=== PATIENT | female | born 1995 | race Caucasian/White ===

== ENCOUNTER 2024-06-14 22:50 | Emergency (ER) | payer OTHER ==
[~2024-06-14] VITALS: Ht 177.8 cm; Wt 156.3 kg
[2024-06-15 03:54] VITALS: BP 130/84; TEMP 98.9; O2SAT 98
== END 2024-06-15 03:55 | disposition home or self-care (01) ==
LOC: M ED 22:50
DX: U07.1 COVID-19 (principal)

== ENCOUNTER 2024-12-19 12:04 | Day surgery (SDC) | payer OTHER ==
[~2024-12-19] VITALS: Ht 177.8 cm; Wt 157.5 kg
[~2024-12-19 12:04] MED LIST: ACETAMINOPHEN 500 MG TAB PO ONE; FERR325T19 PO; KETOROLAC 30 MG/ML 1 ML VIAL As Ordered ONE; LEXA1TAB PO; LIDOCAINE 2% 100 MG/5 ML SDV (FOR ANES.) As Ordered ONE; MIDAZOLAM INJ 2 MG/2 ML VIAL As Ordered ONE; ONDANSETRON 4MG 2ML VIAL As Ordered ONE; PRENTAB53 PO; dexAMETHasone 4 MG/ML 1 ML VIAL As Ordered ONE
[2024-12-19 13:17] LABS: PLATELET COUNT, AUTOMATED 325 10^3/uL (150-450)
[2024-12-19] MEDS ORDERED: TACR0.1O EX (13:34)
[2024-12-19 13:38] LABS: CALCIUM LEVEL 9.4 MG/DL (8.5-10.1); CARBON DIOXIDE LEVEL 25 MMOL/L (20-31); CHLORIDE LEVEL 104 MMOL/L (98-107); CREATININE FOR GFR 0.58 MG/DL (0.55-1.30); GLOMERULAR FILTRATION RATE > 90.0 (>60); POTASSIUM SERUM 3.9 MMOL/L (3.5-5.1); SODIUM LEVEL 143 MMOL/L (136-145)
[2024-12-19] MEDS ORDERED: LR 1,000 ML IV SCH (13:40)
[2024-12-19] MEDS: SCOPOLAMINE 1MG TRANSDERMAL PATCH TOP ONE (14:02)
[2024-12-19] MEDS ORDERED: SILVER NITRATE APPLICATOR (1 = QTY 10) As Ordered ONE (14:28)
[2024-12-19] MEDS ORDERED: LIDOCAINE 1% SDV 30 ML VIAL As Ordered ONE (14:28)
[2024-12-19] MEDS ORDERED: ACETAMINOPHEN 1000MG/100ML IV BAG As Ordered ONE (15:31)
[2024-12-19] MEDS ORDERED: ONDANSETRON 4MG 2ML VIAL IV PRN (15:55)
[2024-12-19 16:56] VITALS: BP 131/80; TEMP 97.4; O2SAT 100
== END 2024-12-19 17:04 | disposition home or self-care (01) ==
LOC: M SDC 12:04
PROVIDERS: ATTEND General Practice
DX: N84.0 Polyp of corpus uteri (principal); N97.9 Female infertility, unspecified; E66.813 Obesity, class 3; L91.8 Other hypertrophic disorders of the skin; Z90.89 Acquired absence of other organs
CPT/HCPCS: 36415; 58558; 80048; 81025; 85027; 86850; 86900; 86901; 88304; 88305; J0131; J1100; J1885; J2250; J2405; J2765; J3010